=== PATIENT | female | born 2000 | race Caucasian/White ===

== ENCOUNTER 2019-08-03 15:06 | Emergency (ER) | payer BC ==
[~2019-08-03] VITALS: Ht 152 cm; Wt 45.0 kg
[2019-08-03] MEDS ORDERED: PRD20T PO (17:08)
--- NOTE | 2019-08-03 17:09 | ED Integumentary General ---
General Chief Complaint: Allergic Reaction Stated Complaint: ALLERGIC REACTION - HIVES Nursing Triage Note: THE PT IS AMBULATORY TO THE ROOM WITHOUT DIFFICULTY. NO DISTRESS IS SEEN ON ARRIVAL. LOC IS NORMNL FOR THE PT. THE PT HAS A RASH ON HER NECK AND CHEST. THIS STARTED LAST PM. Source: patient Exam Limitations: no limitations History of Present Illness Date Seen by Provider: Aug 03, 2019 Time Seen by Provider: 17:05 Initial Comments To ER with itchy red bumps. She noticed a few on her upper chest and face last night, awakened this morning with more on her hands and legs. No known cause. She has tried Tagamet, Benadryl and another antihistamine and home without relief. Timing/Duration: just prior to arrival Severity: moderate Location: generalized Possible Cause: no cause identified Associated Symptoms: denies symptoms Allergies and Home Medications Patient Home Medication List Home Medication List Reviewed: Yes Review of Systems Review of Systems Constitutional: see HPI EENTM: see HPI Respiratory: no symptoms reported Cardiovascular: no symptoms reported Genitourinary: no symptoms reported Musculoskeletal: no symptoms reported Skin: see HPI Psychiatric/Neurological: No Symptoms Reported Endocrine: No Symptoms Reported Past [id number] Hx Patient Social History Recent Foreign Travel: No Contact w/Someone Who Travel: No Recent Infectious Disease Expo: No Recent Hopitalizations: No Physical Abuse: No Sexual Abuse: No Mistreated: No Fear: No Seasonal Allergies Seasonal Allergies: No Past Medical History Surgeries: No Physical Exam Vital Signs Vital Signs - First Documented 08/03/19 15:37 Temp 36.9 Pulse 76 Resp 16 B/P (MAP) 130/70 (90) Capillary Refill : Less Than 3 Seconds General Appearance: WD/WN, no apparent distress Neck: non-tender, full range of motion Respiratory: normal breath sounds, no respiratory distress, no accessory muscle use Gastrointestinal: normal bowel sounds, non tender Neurologic/Psychiatric: alert, normal mood/affect, oriented x 3 Skin: normal color, warm/dry Skin Problem Location: torso Skin Problem Character: other (dime-sized areas of induration/pruritus in groups, upper chest, left side of her face, one to the palm of her right hand, a few scattered about her arms and legs.) Progress/Results/Core Measures Results/Orders Vital Signs/I&O 08/03/19 15:37 Temp 36.9 Pulse 76 Resp 16 B/P (MAP) 130/70 (90) Blood Pressure Mean: 90 POS Departure Impression Primary Impression: Rash and nonspecific skin eruption Disposition: HOME, SELF-CARE Condition: Stable Departure-Patient Inst. Decision time for Depature: 17:07 Referrals: NO,LOCAL PHYSICIAN (PCP/Family) Primary Care Physician Patient Instructions: Skin Rash (DC) Add. Discharge Instructions: 1. Return to ER for any concerns 2. Follow-up with your doctor next week 3. All discharge instructions reviewed with patient and/or family. Voiced understanding. Scripts Prednisone (Prednisone) 20 Mg Tab 20 MG PO DAILY, #8 TAB Prov: YASH GALLEGOS APRN 08/03/19 YASH GALLEGOS APRN Aug 03, 2019 17:08 POS
[2019-08-03 17:19] VITALS: BP 130/70
--- OUTSIDE RECORDS SUMMARY | 2019-08-28 23:58 | XMS REPORT | Continuity of Care Document ---
Author Organization Unknown Address Unknown Phone Unavailable Allergies There is no data. Medications There is no data. Problems Date Dx Coded Attending Type Code Diagnosis Diagnosed By 08/08/2019 YASH GALLEGOS APRN Ot R21 RASH AND OTHER NONSPECIFIC SKIN ERUPTION Procedures There is no data. Results There is no data. Encounters ACCT No. Visit Date/Time Discharge Status Pt. Type Provider Facility Loc./Unit Complaint [id number] 08/03/2019 15:09:00 019 17:20:00 DIS Outpatient YASH GALLEGOS APRN [facility] ER ALLERGIC REACTION - HIV ES
== END 2019-08-03 17:20 | disposition home or self-care (01) ==
LOC: ER 15:09
DX: R21 Rash and other nonspecific skin eruption (principal)
CPT/HCPCS: 99282